=== PATIENT | female | born 1975 | race Caucasian/White ===

== ENCOUNTER 2019-04-22 12:38 | Emergency (ER) | payer BC, SELFPAY ==
[2019-04-22 12:40] VITALS: BP 159/91; PULSE 88; RESP 18; TEMP 36.6; O2SAT 100; BMI 22.0
--- NOTE | 2019-04-22 13:53 | CT_ITS ---
STUDY: CT ABDOMEN AND PELVIS WITHOUT CONTRAST REASON FOR EXAM: Female, 43 years old. RIGHT FLANK PAIN -- NO HX KIDNEY STONES -- NO SURGICAL HX RADIATION DOSAGE (If Supplied By Facility): CTDIvol = ( 6.83 ) mGy, DLP = ( 354.94 ) mGycm TECHNIQUE: Transaxial images were obtained from the dome of the diaphragm to the symphysis pubis without oral contrast, and without intravenous contrast. Sagittal and coronal images were reconstructed. Individualized dose optimization techniques were used for this CT. COMPARISON: None. FINDINGS: Minimal increased linear markings at the lung bases slightly more prominent on the right side suggestive of linear scarring and/or atelectasis. The visualized portions of the heart are within normal limits. Normal liver. Normal gallbladder and extrahepatic biliary system. Normal spleen. Normal pancreas. Normal bilateral adrenal glands. Normal right kidney. Normal left kidney. Normal visualized stomach. Normal small intestine. Normal colon. The appendix is visualized and appears normal. Normal abdominal aorta. Normal inferior vena cava. Normal retroperitoneum. Normal urinary bladder. Normal abdominal wall. There are mild degenerative changes of the visualized lumbar spine. CT/Abdomen/Pelvis without Cont IMPRESSION: Normal unenhanced CT of the abdomen and pelvis. Electronically Signed: Finn Staley, at 14:46 EST , Service support ,
[2019-04-22 14:18] LABS: Absolute Lymphocyte Count 1.96 X10^3/uL (0.83-4.51); Absolute Neutrophil Count 6.3 X10^3/uL (2.0-7.7); Basophil# 0.13 X10^3/uL; Basophil% 1.4 % (0-1); Eosinophil# 0.33 X10^3/uL; Eosinophils% 3.5 % (0-5); Hematocrit 43.1 % (37-47); Hemoglobin 14.3 g/dL (12.0-15.0); Lymphocyte # 1.96 X10^3/ul (4.0); Lymphocyte % 21.1 % (19-41); Mean Corp Hgb Conc 33.2 g/dL (32-36); Mean Corpuscular Hgb 31.7 pg (27.0-32.0); Mean Corpuscular Volume 95.6 fL (81-99); Monocyte# 0.53 X10^3/uL; Monocyte% 5.7 % (0-10); NRBC Flagged by Analyzer 0 % (0-5); Neutrophil # 6.33 X10^3/uL (2.7-7.7); Neutrophil % 68.1 % (47-70); Platelet Count 283 K/mm3 (150-450); RBC Distribution Width CV 12.4 % (11.6-14.6); RBC Distribution Width SD 43.3 fl (35.1-43.9); Red Blood Count 4.51 M/mm3 (4.2-5.4); White Blood Count 9.3 K/mm3 (4.4-11.0)
[2019-04-22 14:35] LABS: AST(SGOT) 10 U/L (15-37); Alanine Aminotransfer ALT/SGPT 19 U/L (13-56); Albumin, Serum 3.5 g/dL (3.2-5.0); Alkaline Phosphatase 50 U/L (45-117); Anion Gap 4 (5-15); BUN 12 mg/dL (7-18); BUN/Creat Ratio 17.1 RATIO (10-20); Calcium,Total 8.8 mg/dL (8.5-10.1); Chloride 108 mmol/L (98-107); EST Glomerular Filtration Rate 95 mL/min (>60); Est Glom Filt Rate - Afr Amer 116 mL/min (>60); Estimated Creatinine Clearance 102.38 ml/min; Globulin 3.6 g/dL (2.2-4.2); Glucose 84 mg/dL (74-106); Potassium 4.1 mmol/L (3.5-5.1); Protein, Total 7.1 g/dL (6.4-8.2); Sodium Level 140 mmol/L (136-145)
[2019-04-22 14:39] LABS: Mucous, Urine 0 SEEN /hpf (<or=2+); Red Blood Cells-Urine 0 SEEN /hpf (0-5); White Blood Cells 0 SEEN /hpf (0-5)
[2019-04-22 14:44] LABS: Color, Urine Yellow (Yellow); Glucose, Dipstick Normal (Normal); Ketone-Dipstick Negative (Negative); Leukocyte Esterase-Dipstick Negative /ul (Negative); Nitrite-Dipstick Negative (Negative); Occult Blood-Urine Negative /ul (Negative); Protein-Dipstick Negative (Negative); Urine Bilirubin Dipstick Negative (Negative); Urine Clarity Sl. Cloudy (Clear); Urine Urobilinogen Normal (Normal)
[2019-04-22 14:55] LABS: Bacteria 1+ /hpf (None Seen); Squamous Epithelial Cells - UA 0-5 SEEN /hpf (5-10)
--- NOTE | 2019-04-22 15:44 | ED.VIS.GEN ---
History of Present Illness Chief Complaint: Abd Pain Informant: Patient Narrative: Patient presents with right flank and right lower abdominal pain since yesterday she has no fever chills cough or congestion she has no dysuria or hematuria she has no left-sided abdominal pain and no upper abdominal pain she has no nausea vomiting. She has no diarrhea or constipation. She thinks she may have twisted the wrong way at work, her pain is sometimes worse with twisting or bending. Past Medical History - Allergies and Home Meds Allergies/Adverse Reactions: Allergies No Known Allergies Allergy (Verified 04/22/19 12:42) Primary Care Physician: Care Physician,No Primary [Primary Care Provider] - Past Medical History: None Smoking Status: Current every day smoker Review of Systems All systems negative except as indicated General: Denies: Fever Cardiovascular: Denies: Chest pain Respiratory: Denies: Dyspnea, Cough Gastrointestinal: Reports: Abdominal pain. Denies: Nausea, Vomiting, Diarrhea Genitourinary: Denies: Dysuria, Hematuria Musculoskeletal: Reports: Back pain. Denies: Myalgias Skin: Denies: Rash Neurological: Denies: Headache, Weakness Endocrine: Denies: Polyuria Physical Exam Vital Signs/Narrative: Vital Signs Temp Pulse Resp BP Pulse Ox 04/22/19 12:40 98 F 88 18 159/91 H 100 General: Well nourished, Well developed ENT: Moist mucous membranes, No rhinorrhea Cardiovascular: Regular rate, Regular rhythm Respiratory: No distress, CTA bilaterally Abdomen: Soft, - - Is right lower quadrant tenderness, there is some slight CVA tenderness pain is quite reproducible there is no guarding or rebound. No upper abdominal pain. No guarding or rebound. Back: Nontender, Normal Inspection, CVA tenderness Extremities: No edema Skin: Normal color Neurological: Alert, Oriented x3 Diagnostic/Tx/Re-eval - Medical Decision Making CT abdomen is unremarkable, she has a normal white count she has a normal urinalysis, otherwise normal work-up. I told her there is a possibility of early appendicitis and if she has the same pain or gets worse she needs to return regardless she needs to be seen tomorrow for reevaluation. Otherwise I will discharge her in stable condition. She does not require analgesia. ED Disposition - Plan for ED Patient: Disposition: Home or Assisted Living Diagnosis: Abdominal pain Instructions: ABDOMINAL PAIN, Unknown Cause, (Female) Referrals: Care Physician,No Primary [Primary Care Provider] - 3-5 Days
[2019-04-22 15:55] VITALS: BP 135/71; PULSE 72; RESP 17; O2SAT 97
== END 2019-04-22 15:57 | disposition home or self-care (01) ==
PROVIDERS: Emergency Provider Emergency Medicine
DX: R10.31 Right lower quadrant pain (principal); M54.9 Dorsalgia, unspecified; F17.200 Nicotine dependence, unspecified, uncomplicated
CPT/HCPCS: 74176; 80053; 81001; 85025; 99283; A4216

== ENCOUNTER 2019-06-23 09:40 | Day surgery (SDC) | payer BC, SELFPAY ==
--- NOTE | 2019-06-22 15:43 | PCM.HP.BLA ---
History and Physical Date of Admission: 06/23/19 Rosi Nicole Physician SOFTWARE TEST DEVELOPER H&P Signed Encounter Date: 06/22/2019 Expand All Collapse All Hide copied text Mercedes for details Serene Can is a 43 year old female who presents for preop visit for abnormal uterine bleeding. Patient reports has had heavy menses for many years. She also experiences intermenstrual spotting. Patient has recently seen nurse practitioner Bakari Li start her on depo injections. Patient had a pelvic ultrasound which revealed a likely endocervical polyp. Patient would like to proceed with surgical management. She denies any chest pain, shortness of breath, dizziness. ? PAST MEDICAL HISTORY PAST MEDICAL HISTORY Diagnosis Date ? Excessive or frequent menstruation ? ? Heavy periods ? PAST SURGICAL HISTORY PAST SURGICAL HISTORY Procedure Laterality Date ? LIGATE FALLOPIAN TUBE ? 2002 ? Tubal ligation ? FAMILY HISTORY FAMILY HISTORY Problem Relation Age of Onset ? Cancer Paternal Grandmother ? ? lung-smoker ? Coronary Artery Disease Father ? ? at age 52 ? Coronary Artery Disease Maternal Grandfather ? ? Hypertension Father ? ? SOCIAL HISTORY Social History ? Tobacco Use ? Smoking status: Former Smoker ? Smokeless tobacco: Never Used ? Tobacco comment: quit 2002 Substance Use Topics ? Alcohol use: No ? Drug use: No ? CURRENT MEDICATIONS Current Outpatient Medications Medication Sig ? medroxyPROGESTERone (DEPO-PROVERA) 150 mg/mL injection Inject 1 mL intramuscularly every 12 weeks. ? multivitamins(DAILY MULTIVITAMIN TAB) Take one(1) tablet daily. ? Current Facility-Administered Medications Medication Dose Route Frequency ? medroxyPROGESTERone 150 mg injection (DEPO-PROVERA) 150 mg INTRAMUSCULAR every 12 weeks ? Allergies As of Date: 06/22/2019 (No Known Allergies) Fully Assessed 06/22/2019 ? ? REVIEW OF SYSTEMS Abdomen: no pain Bladder: no dysuria.. Expanded ROS: GENERAL: Negative for fever Allergies and current medication updated:Yes ? EXAM: BP 132/80 Ht 5' 7 (1.70m) Wt 177 lb (80.3kg) LMP 05/22/2019 BMI 27.72 kg/(m^2). GENERAL: pleasant, female in no apparent distress HEENT: Normocephalic and atraumatic NECK: full range of motion DERMATOLOGY: Normal, without lesions, non-icteric and non-hirsute NEURO: alert and oriented x3,exam grossly non-focal ? ? ASSESSMENT AND PLAN: Encounter Diagnosis ? ? ICD-10-CM ? 1. Abnormal uterine bleeding (AUB) N93.9 ? 2. Endocervical polyp N84.1 ? 3. Pre-op exam Z01.818 ? ? 4. Pt has been counseled on risks/benefits and alternatives of surgery including but not limited to anesthesia, bleeding, infection, uterine perforation with subsequent injury to pelvic structures including bowel, bladder and vessels. Pt wishes to proceed with surgery at this time. ? 5 reviewed other options for mgmt with mirena IUD and Ablation if bleeding continues. The patient was offered a surgery/procedure at a [facility]. The surgeon/proceduralist and patient have discussed in detail the risk of exposure to and/or potential harm posed by the COVID-19 virus with having a surgery/procedure at this time versus the risk of? delaying the surgery/procedure. It is not possible to know either the risk of delaying the surgery or procedure or chance of getting an infection with perfect accuracy, but a joint decision was made between the patient and the surgeon/proceduralist ?to proceed at this time with the scheduled surgery/procedure as indicated on the consent form. ? ? ? Rosi Jacobo MD ? Essential Procedure Criteria Procedure Essential: No Criteria Note: On 05/03/2019 the [facility] ([facility]) Public Order signed by [facility] Director Cyndi Wooten M.D., regarding the Management of Non-Essential Surgeries and Procedures for the purpose of preserving Personal Protective Equipment (PPE) and critical hospital capacity and resources within [place] went into effect as of 05/04/2019 at 5:00PM. According to the [facility] Public Order: This action will remain in full force and effect until the State of Emergency declared by the Governor no longer exists or the Director of the [facility] rescinds or modifies this Order.. This [facility] order stated all non-essential or elective surgeries and procedures that utilize PPE should be delayed unless there is undue risk to the current or future health of a patient. After reviewing the aforementioned [facility] Public Order and the patients clinical case, I have determined that the scheduled procedure meets the criteria to go forward.
[2019-06-23] VITALS (7 sets, daily range): BP systolic 109–135; BP diastolic 68–80; PULSE 53–72; RESP 14–16; TEMP 36.3–37.1; O2SAT 99–100; BMI 27.6
--- NOTE | 2019-06-23 | EMB_PTH ---
PATIENT: TI MAHAN LOC: [facility] [place] U#:[id number] AGE/SX: 43/F ROOM: RE06/23/[address]: Dr. Rosi Jacobo, MDDOB: 1975 BED: DIS: 06/23/2019 SPEC #: [id number] RECD: 06/23/19 12:04 STATUS: GABBY PETERSON #: [id number] ELIZABETH: 06/23/19 00:[address]: Rosi Jacobo DEPT: SURGICAL PATHOLOGY RECD BY: Efra Yanez ENTERED: 06/24/19 08:51 SP TYPE: ENDOM BX/C MADI DR: No Primary Care Phys Tissues: Endometrium, NOS Procedures: Surgery Specimen Level IV HEADER OPERATION: Hysteroscopy, D & C Symphion, polypectomy PRE-OP DIAGNOSIS: Abnormal uterine bleeding; endocervical polyp TISSUE SUBMITTED: Endometrial curettings MICROSCOPIC DIAGNOSIS Endometrium, curettings: Secretory endometrium. Lower uterine/endocervical segment with benign cystic change. Rare strips of benign squamous mucosa. AM:valerie 06/27/19 MICROSCOPIC DESCRIPTION Slides are reviewed. GROSS DESCRIPTION Received in fixative is one container labeled with the patient's name and designated endometrial curettings. The specimen consists of multiple fragments of hemorrhagic soft tissue that in aggregate measure 5 x 3 x 0.3 cm. The entire specimen is submitted in two cassettes. / LUCIE:valerie 06/24/19 TC:5 CPT: 08811
[2019-06-23] MEDS: Lactated Ringers 1,000 ML 100 ML IV (10:52)
[2019-06-23 10:55] LABS: Internal QC Validated? YES +Cl - CLEAR BKGD; Pregnancy, Urine Negative Negative
--- NOTE | 2019-06-23 11:28 | DCINST_ITS ---
Discharge Diet: No Restrictions Discharge Activity: Return to Normal Activity, May Shower, May Take a Tub Bath - in 2 weeks. May resume sexual activity in: 1 week Call your doctor if your incision/area has: Foul Smelling Discharge Call your doctor if you observe: Fever of 101 or Higher, Using more than one pad per hour Allergies/Adverse Reactions: Allergies No Known Allergies Allergy (Verified 04/22/19 12:42) Medications to take at Discharge Multiple Vitamin 1 tab PO DAILY 06/23/19 Primary Care Physician: Care Physician,No Primary [Primary Care Provider] - Test Results: Test results from this visit will be discussed in further detail at your follow- up appointment, if applicable. Please Follow Up With: Rosi Jacobo MD When: 2 weeks post op - call [phone] to schedule
--- NOTE | 2019-06-23 11:50 | PCM.OPRPT ---
Report of Operation Date of Procedure: 06/23/19 Pre-Operative Diagnosis: aub, endocervical polyp Post-Operative Diagnosis: aub Surgery/Procedure Performed:: hysteroscopy, D&C Description of Surgical Findings:: No endocervical or endometrial polyp identified. Large amount of endometrial tissue Type of Anesthesia:: MAC Specimen's removed: Endometrial curettings Drains: none Estimated Blood Loss (mL): <5cc Fluids Replaced: 400 Description of Procedure: Informed consent was obtained the patient was taken the operating room she was placed in supine position. She was given anesthesia. She was then placed in the [facility] where she was prepped and draped in the normal sterile fashion. At this time the weighted speculum was placed in the posterior fornix of vagina. Single-tooth tenaculum was used to gently grasp the anterior lip the cervix. At this time the uterine cavity was sounded to approximately 8cm. Gentle dilatation was performed once adequate dilatation of the cervix was achieved the hysteroscope using normal saline as a distention medium was placed. abundant Endometrial tissue . Otherwise no gross abnormalities. Sharp curettage was performed. Moderate amount of endometrial tissue removed. This will be sent to pathology for evaluation. hysteroscopy reinserted, cavity intact. no polyps again noted. Tubal ostia noted. Procedure was deemed complete successful there are no complications. Anticipated normal postoperative course. Instrument lap count correct ?2. Vaginal Sweep was negative. Grafts/Implants Used: none - Complications none - Admit VTE Documentation VTE Present on Admission: Yes VTE Mechan Device Prophylaxis: SCD's VTE Pharm Prophylaxis ordered?: No
== END 2019-06-23 12:53 | disposition home or self-care (01) ==
LOC: SDC 09:40 → AC 09:41
PROVIDERS: Referring Provider Obstetrics & Gynecology; Visit Provider Obstetrics & Gynecology
PROC: 0UB98ZZ Excision of Uterus, Via Natural or Artificial Opening Endoscopic (ICD-10-PCS; CPT 58558; principal; 2019-06-23 12:15)
DX: N84.1 Polyp of cervix uteri (principal); N92.0 Excessive and frequent menstruation with regular cycle; Z98.51 Tubal ligation status; Z87.891 Personal history of nicotine dependence
CPT/HCPCS: 58558; 81025; 88305; J7120; J2405